=== PATIENT | female | born 1985 | race Caucasian/White ===

== ENCOUNTER → 2020-11-25 11:16 | Outpatient (REF) | payer MEDICARE, MEDICAID, SELFPAY ==
--- NOTE | 2020-11-25 11:26 | ECG_ITS ---
Test Reason : METHADONE QT PROLONG Blood Pressure : / mmHG Vent. Rate : 062 BPM Atrial Rate : 062 BPM P-R Int : 180 ms QRS Dur : 086 ms QT Int : 436 ms P-R-T Axes : 029 009 -01 degrees QTc Int : 442 ms Normal sinus rhythm Normal ECG No previous ECGs available Referred By: Yessy Mohr Electronically Signed By:ENZO REINA
== END ==
LOC: HO.CARD 11:16
PROVIDERS: PCP Family Medicine; Visit Provider Family Medicine
DX: Z79.891 Long term (current) use of opiate analgesic (principal)
CPT/HCPCS: 93005

== ENCOUNTER 2020-12-31 09:11 | Emergency (ER) | payer MEDICARE, MEDICAID, SELFPAY ==
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
[2020-12-31 09:45] VITALS: BP 118/69; PULSE 93; RESP 16; TEMP 37.4; O2SAT 97; BMI 33.0
[2020-12-31 11:06] LABS: Appearance Urine HAZY; Color Urine YELLOW; Glucose Urine UA NEG (NEG); Leukocyte Esterase Urine 1+ (NEG); Nitrite Urine NEG (NEG); UACC Culture Trigger YES; Urine Blood NEG (NEG); Urine Ketones NEG (NEG); Urine Protein NEG (NEG-TRACE)
[2020-12-31 11:13] LABS: Bacteria Urine TRACE /LPF; RBC Urine 0-2 /HPF (0); Squamous Epithelial Cell Urine 3+ /LPF
[2020-12-31 11:29] LABS: COVID-19 Test Negative (Negative)
[2020-12-31 12:00] VITALS: RESP 17
--- NOTE | 2020-12-31 13:18 | PC.NURSE ---
tech attempted to obtain labs, pt refusing labs and urine and states she wants to be discharged.
[2020-12-31 13:42] VITALS: BP 118/69; PULSE 93
[2020-12-31] MEDS: Gabapentin 300 MG CAPSULE PO (13:42)
[2020-12-31] MEDS: cloNIDine HCL 0.2 MG TABLET PO (13:42)
[2020-12-31] MEDS: LORazepam 1 MG TABLET PO (13:42)
[2020-12-31] MEDS: lamoTRIgine 100 MG TABLET PO (13:42)
--- NOTE | 2020-12-31 13:52 | PC.NURSE ---
pt initially refused lab draw, pt requesting po medications, spoke with provider who then ordered her home medications, pt was medicated with her home medications and stated that she will let us know when she feels ok enough to allow the lab draw.
--- NOTE | 2020-12-31 13:56 | PC.NURSE ---
pt refuses to take blood thinner, she states she previously had a pulmonary embolis and does not take the thinner and will not take it now as she throws it out at home.
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
[2020-12-31 15:58] LABS: Amphetamine Screen Urine Not Detected (Not Detect); Barbiturates, Urine Not Detected (Not Detect); Benzodiazepines Screen Urine POSITIVE (Not Detect); Cannabinoid Screen Urine Not Detected (Not Detect); Cocaine Screen Urine Not Detected (Not Detect); Fentanyl, urine Not Detected (Not Detect); Opiate Screen Urine Not Detected (Not Detect); Phencyclidine Screen Urine Not Detected (Not Detect)
== END 2020-12-31 15:19 | disposition home or self-care (01) ==
PROVIDERS: Physician Assistant; Emergency Provider Emergency Medicine; PCP Family Medicine
DX: F41.9 Anxiety disorder, unspecified (principal); Z20.822 Contact with and (suspected) exposure to COVID-19; Z79.01 Long term (current) use of anticoagulants; Z79.899 Other long term (current) drug therapy
CPT/HCPCS: 36415; 80307; 81001; 87086; 87635; 99284

== ENCOUNTER 2022-01-22 23:25 | Inpatient (IN) | payer MEDICARE, MEDICAID, SELFPAY ==
--- NOTE | 2022-01-22 23:58 | PC.NURSE ---
pt signed a 3-day notice on 01-22-22, up on 01/27/22
[2022-01-23 06:00] VITALS: BP 99/56; PULSE 55; RESP 16; TEMP 36.5; O2SAT 98
[2022-01-23] MEDS: cloNIDine HCL 0.2 MG TABLET PO ×2 (07:39→20:30)
[2022-01-23] MEDS: Apixaban 5 MG TABLET PO ×2 (07:39→20:30)
[2022-01-23] MEDS: lamoTRIgine 100 MG TABLET PO ×2 (07:39→20:31)
[2022-01-23] MEDS: clonazePAM 1 MG TABLET PO ×2 (07:40→20:30)
[2022-01-23] MEDS: methADONE HCl 20 MG/2 ML ORAL.CONC 100 MG PO (07:40)
[2022-01-23] MEDS: Gabapentin 600 MG TABLET PO ×2 (07:40→20:31)
[2022-01-23 09:09] LABS: Estimated Average Glucose 103 mg/dL; Hemoglobin A1c % 5.2 %
[2022-01-23 09:16] LABS: Cholesterol 270 mg/dL; HDL Cholesterol 54 mg/dL; LDL Cholesterol Calculated 152 mg/dl; Magnesium 2.1 mg/dL (1.6-2.6); Triglycerides 322 mg/dL
[2022-01-23 09:40] LABS: Free T4 (Free Thyroxine) 0.86 ng/dL (0.71-1.85); Thyroid Stimulating Hormone 2.61 uIU/mL (0.32-4.0)
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
[2022-01-23] MEDS: methADONE HCl 20 MG/2 ML ORAL.CONC 5 MG PO (16:15)
[2022-01-23 18:00] VITALS: BP 100/60; PULSE 60; RESP 18; TEMP 36.3; O2SAT 97
[2022-01-23] MEDS: Zolpidem Tartrate 5 MG TABLET PO (20:30)
[2022-01-24] MEDS: Gabapentin 600 MG TABLET PO ×2 (07:57→20:51)
[2022-01-24] MEDS: clonazePAM 1 MG TABLET PO ×2 (07:57→20:51)
[2022-01-24] MEDS: methADONE HCl 20 MG/2 ML ORAL.CONC 105 MG PO (07:57)
[2022-01-24] MEDS: lamoTRIgine 100 MG TABLET PO ×2 (07:57→20:51)
[2022-01-24] MEDS: Apixaban 5 MG TABLET PO ×2 (07:57→20:51)
[2022-01-24] MEDS: cloNIDine HCL 0.2 MG TABLET PO ×2 (07:57→20:51)
[2022-01-24 09:34] VITALS: BP 92/62; PULSE 76; RESP 18; TEMP 37; O2SAT 98
[2022-01-24] MEDS: Nicotine 21 MG PATCH.TD24 TRANSDERMA (09:45)
[2022-01-24] MEDS: Nicotine Polacrilex 2 MG GUM BUCCAL (09:49)
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
[2022-01-24 18:00] VITALS: BP 144/84; PULSE 60; RESP 18; TEMP 36.3; O2SAT 100
[2022-01-24] MEDS: Zolpidem Tartrate 5 MG TABLET 10 MG PO (20:51)
[2022-01-25 06:00] VITALS: BP 102/66; PULSE 78; RESP 18; TEMP 36.4; O2SAT 99
[2022-01-25 06:10] LABS: Folate 9.3 ng/mL (> or = 4.0); Vitamin B12 471 pg/mL (200-900)
[2022-01-25] MEDS: Apixaban 5 MG TABLET PO (08:29)
[2022-01-25] MEDS: lamoTRIgine 100 MG TABLET PO (08:29)
[2022-01-25] MEDS: cloNIDine HCL 0.2 MG TABLET PO (08:29)
[2022-01-25] MEDS: methADONE HCl 20 MG/2 ML ORAL.CONC 105 MG PO (08:30)
[2022-01-25] MEDS: Gabapentin 600 MG TABLET PO (08:30)
[2022-01-25] MEDS: clonazePAM 1 MG TABLET PO (08:30)
[2022-01-25] MEDS: Acetaminophen 325 MG TABLET 650 MG PO (09:07)
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
== END 2022-01-25 14:43 | disposition home or self-care (01) | DRG 881 ==
PROVIDERS: Registered Nurse; Admitting Provider Psychiatry & Neurology Psychiatry; PCP Family Medicine; Visit Provider Psychiatry & Neurology Psychiatry
DX: F32.9 Major depressive disorder, single episode, unspecified (principal); F11.20 Opioid dependence, uncomplicated; F43.12 Post-traumatic stress disorder, chronic; R45.850 Homicidal ideations; G62.9 Polyneuropathy, unspecified; K59.03 Drug induced constipation; T40.3X5A Adverse effect of methadone, initial encounter; G89.29 Other chronic pain; M51.36 Other intervertebral disc degeneration, lumbar region; F17.210 Nicotine dependence, cigarettes, uncomplicated; Z71.6 Tobacco abuse counseling; Z79.01 Long term (current) use of anticoagulants; Z79.899 Other long term (current) drug therapy
CPT/HCPCS: 36415; 80061; 82607; 82746; 83036; 83735; 84439; 84443